=== PATIENT | female | born 1980 | race Caucasian/White ===

== ENCOUNTER → 2024-06-28 | Outpatient (CLI) | payer MEDICAID | LOC: M OUTALCOH 08:10 | PROVIDERS: ATTEND Psychiatry & Neurology Psychiatry | DX: Z03.89 Encounter for observation for other suspected diseases and conditions ruled out (principal); F17.200 Nicotine dependence, unspecified, uncomplicated ==

== ENCOUNTER → 2024-11-19 | Outpatient (CLI) | payer MEDICAID ==
[2024-11-19 16:43] LABS: HEMOGLOBIN 13.8 g/dl (12.0-15.5); MEAN CORPUSCULAR HEMOGLOBIN 29.8 pg (27.0-33.0); MEAN CORPUSCULAR HGB CONC 33.7 g/dl (32.0-36.5); MEAN CORPUSCULAR VOLUME 88.6 fl (80.0-96.0); RED BLOOD COUNT 4.63 10^6/uL (4.00-5.40); WHITE BLOOD COUNT 6.5 10^3/uL (4.0-10.0)
[2024-11-19 16:49] LABS: HEMOGLOBIN A1c 5.1 % (4.0-6.0)
[2024-11-19 16:58] LABS: ALKALINE PHOSPHATASE 60 U/L (35-104); ALT/SGPT 23 U/L (7.0-40); AST/SGOT 28 U/L (<34); BILIRUBIN,TOTAL 1.8 MG/DL (0.3-1.2); BLOOD UREA NITROGEN 13 MG/DL (9-23); CALCIUM LEVEL 8.9 MG/DL (8.5-10.1); CARBON DIOXIDE LEVEL 22 MMOL/L (20-31); CHLORIDE LEVEL 103 MMOL/L (98-107); CHOLESTEROL LEVEL 160 MG/DL (<200); CREATININE FOR GFR 0.62 MG/DL (0.55-1.30); GLOMERULAR FILTRATION RATE > 60.0 (>58); GLUCOSE, FASTING 79 MG/DL (60-100); HDL CHOLESTEROL 43.2 MG/DL (>40); LDL CHOLESTEROL 101.6 MG/DL (<100); NON-HDL-C 116.8 MG/DL; POTASSIUM SERUM 3.8 MMOL/L (3.5-5.1); SODIUM LEVEL 136 MMOL/L (136-145); TOTAL PROTEIN 7.5 G/DL (5.7-8.2); TRIGLYCERIDES LEVEL 76 MG/DL (<150)
[2024-11-19 16:59] LABS: THYROID STIMULATING HORMONE 1.024 uIU/ML (0.55-4.78)
[2024-11-19 17:00] LABS: FREE T4 1.03 NG/DL (0.89-1.76)
[2024-11-19 17:33] LABS: PLATELET COUNT, AUTOMATED 87 10^3/uL (150-450)
== END ==
LOC: M WUC 13:01
PROVIDERS: ATTEND Nurse Practitioner Adult Health
DX: Z00.8 Encounter for other general examination (principal); E11.9 Type 2 diabetes mellitus without complications; G47.00 Insomnia, unspecified; R53.83 Other fatigue

== ENCOUNTER 2025-08-05 23:55 | Emergency (ER) | payer OTHER ==
[~2025-08-05] VITALS: Ht 170.2 cm; Wt 68.2 kg
[~2025-08-05 23:55] MED LIST: IMIT50TA PO; SEMA0.257 SQ; SEMA2PEN SQ
[2025-08-06 00:34] LABS: PLATELET COUNT, AUTOMATED 254 10^3/uL (150-450)
[2025-08-06 00:58] LABS: ALT/SGPT 43 U/L (7.0-40); AST/SGOT 49 U/L (<34); CALCIUM LEVEL 8.4 MG/DL (8.5-10.1); CARBON DIOXIDE LEVEL 21 MMOL/L (20-31); CHLORIDE LEVEL 105 MMOL/L (98-107); CREATININE FOR GFR 0.57 MG/DL (0.55-1.30); GLOMERULAR FILTRATION RATE > 90.0 (>58); POTASSIUM SERUM 3.7 MMOL/L (3.5-5.1); SALICYLATE LEVEL < 3.0 MG/DL (<30); SODIUM LEVEL 143 MMOL/L (136-145)
[2025-08-06 01:01] LABS: HCG, SERUM QUALITATIVE NEGATIVE (NEGATIVE)
[2025-08-06 01:27] LABS: ETHYL ALCOHOL (ETHANOL) 0.397 % (0.000-0.010)
[2025-08-06 02:07] LABS: AMPHETAMINES LEVEL URINE NEGATIVE (NEGATIVE); BARBITURATES URINE NEGATIVE (NEGATIVE); BENZODIAZEPINES URINE NEGATIVE (NEGATIVE); COCAINE METABOLITE URINE NEGATIVE (NEGATIVE); METHADONE URINE NEGATIVE (NEGATIVE); OPIATES URINE NEGATIVE (NEGATIVE); PHENCYCLIDINE URINE NEGATIVE (NEGATIVE)
[2025-08-06 02:08] LABS: CANNABINOIDS URINE NEGATIVE (NEGATIVE)
[2025-08-06 05:40] VITALS: TEMP 97.7; O2SAT 100
[2025-08-06] MEDS: FOLIC ACID 1 MG TAB PO SCH (10:03)
[2025-08-06] MEDS: THIAMINE 100 MG TAB PO SCH (10:04)
[2025-08-06] MEDS: MULTIVITAMINS/MINERALS THERAP 1 TAB PO SCH (10:04)
[2025-08-06 10:08] VITALS: BP 134/65
[2025-08-06] MEDS ORDERED: HOME MED LIST COMPLETE! XX SCH (13:05)
== END 2025-08-06 13:59 | disposition home or self-care (01) ==
LOC: M ED 23:55
DX: F10.120 Alcohol abuse with intoxication, uncomplicated (principal); F32.A Depression, unspecified; F17.290 Nicotine dependence, other tobacco product, uncomplicated; Z88.8 Allergy status to other drugs, medicaments and biological substances; Z79.4 Long term (current) use of insulin; Z79.899 Other long term (current) drug therapy